=== PATIENT | male | born 2000 | race Caucasian/White ===

== ENCOUNTER 2021-05-24 12:09 | Emergency (ER) | payer OTHER ==
--- NOTE | 2021-05-24 12:43 | EDM.PDOC ---
ED HPI GENERAL MEDICAL PROBLEM - General Chief Complaint: Laceration Stated Complaint: LACERATION ABOVE LEFT EYE Time Seen by Provider: 05/24/21 12:20 Source of Information: Reports: Patient History Limitations: Reports: No Limitations - History of Present Illness INITIAL COMMENTS - FREE TEXT/NARRATIVE: Patient comes emergency department today from work with concerns of a laceration above his left eye. Just prior to arrival the patient was at work when he was working with a drill on a piece of metal. He was very close to his work when the drill slipped out of his hand spun around and struck him on the left upper eyelid lateral aspect of the eyebrow. He did not lose conscious. He has no head neck or back pain. There is no visual acuity changes. He has no diplopia. He has no pain in his eye. He is unsure of when his last tetanus shot was. Bleeding was controlled prior to arrival. - Related Data Allergies Allergy/AdvReac Type Severity Reaction Status Date / Time No Known Allergies Allergy Verified 05/24/21 12:17 Home Meds: Home Meds . [No Known Home Meds] 05/24/21 [History] Past Medical History - Past Health History Medical/Surgical History: Denies Medical/Surgical History Social & Family History - Tobacco Use Tobacco Use Status *Q: Current Every Day Tobacco User Years of Tobacco use: 1 Packs/Tins Daily: 0.5 - Recreational Drug Use Recreational Drug Use: No ED ROS GENERAL - Review of Systems Review Of Systems: Comprehensive ROS is negative, except as noted in HPI. ED EXAM, SKIN/RASH Exam: See Below Exam Limited By: No Limitations General Appearance: Alert, WD/WN, No Apparent Distress Eye Exam: Bilateral Eye: EOMI, PERRL Ears: Normal External Exam, Normal TMs Nose: Normal Inspection, Normal Mucosa, No Blood Throat/Mouth: Normal Inspection, Normal Lips, Normal Teeth Head: Normocephalic, Other (Rest of the face and head is atraumatic. ). No: Atraumatic (Atraumatic scalp. There is a 2 cm transverse laceration on the upper eyelid on the lateral aspect. It does not involve the lateral canthus. This is below the left eyebrow. There is no bony deformity crepitus bruising swelling ecchymosis or subcutaneous emphysema. Extraocular movements are intac) Neck: Normal Inspection Respiratory/Chest: No Respiratory Distress Cardiovascular: Normal Peripheral Pulses Neurological: Alert, Oriented, CN II-XII Intact, Normal Cognition, Normal Gait, No Motor/Sensory Deficits ED SKIN PROCEDURES - Laceration/Wound Repair Left Upper Appearance: Subcutaneous, Linear, Clean Distal NVT: Neuro & Vascular Intact Skin Prep: Chlorhexidine (Hibiciens), Saline Exploration/Debridement/Repair: Wound Explored, In a Bloodless Field, No Foreign Material Found Closed with: Dermabond Lac/Wound length In cm: 2 Sterile Dressing Applied: None Tetanus Status Addressed: Yes Complications: No Progress/Comments: The wound edges were approximated with manual manipulation. It was secured with Dermabond with excellent wound approximation. Patient tolerated the procedure well. Course - Vital Signs Last Recorded V/S: Last Vital Signs Temp 98.1 F 05/24/21 12:09 Pulse 81 05/24/21 12:09 Resp 18 05/24/21 12:09 BP 134/80 05/24/21 12:09 Pulse Ox 100 05/24/21 12:09 - Orders/Labs/Meds Meds: Medications Discontinued Medications Generic Name Dose Route Start Last Admin Trade Name Freq PRN Reason Stop Dose Admin Diphtheria/Tetanus/Acell Pertussis 0.5 ml 05/24/21 12:42 05/24/21 12:48 Diphtheria,Pertussis(Acell),Tetanus Vaccine 0.5 Ml Syringe IM 05/24/21 12:43 0.5 ml .ONCE ONE Administration - Re-Assessments/Exams Free Text/Narrative Re-Assessment/Exam: 05/24/21 14:59 See procedure note for repair of laceration. Departure - Departure Time of Disposition: 12:41 Disposition: Home, Self-Care 01 Clinical Impression: Facial laceration Qualifiers: Encounter type: initial encounter Qualified Code(s): S01.81XA - Laceration without foreign body of other part of head, initial encounter - Discharge Information Instructions: Laceration Care, Adult, [id number], Facial Laceration, [id number] Referrals: PCP,Not In Area [Primary Care Provider] - Forms: ED Department Discharge Additional Instructions: Keep the Dermabond clean and dry. Do not get it wet. Do not pull at the Dermabond. It will fall off on its own. Watch for infection. Glue should fall off in about 5-7 days. Recheck in in the clinic if any concerns. Your tetanus was updated today. Sepsis Event Note (ED) - Evaluation Sepsis Screening Result: No Definite Risk - Focused Exam Vital Signs: Vital Signs Temp Pulse Resp BP Pulse Ox 05/24/21 12:09 98.1 F 81 18 134/80 100
[2021-05-24] MEDS: Diphtheria,Pertussis(Acell),Tetanus Vaccine 0.5 ML Syringe IM ONE (12:48)
== END 2021-05-24 12:53 | disposition home or self-care (01) ==
LOC: VM.ED 12:09
DX: S01.112A Laceration without foreign body of left eyelid and periocular area, initial encounter (principal); Z72.0 Tobacco use; Z23 Encounter for immunization; W29.8XXA Contact with other powered hand tools and household machinery, initial encounter; Y92.69 Other specified industrial and construction area as the place of occurrence of the external cause
CPT/HCPCS: 12011; 90471; 90715; 99282-25; 99283